=== PATIENT | female | born 1975 | race Native Hawaiian/Other Pacific Islander ===

== ENCOUNTER 2022-01-04 15:26 | Outpatient (CLI) | payer BC | END 2022-01-04 19:23 | disposition home or self-care (01) | LOC: MAMMO 15:26 | PROVIDERS: ATTEND Obstetrics & Gynecology | DX: Z12.31 Encounter for screening mammogram for malignant neoplasm of breast (principal) ==

== ENCOUNTER 2023-01-30 15:46 | Outpatient (CLI) | payer BC | END 2023-01-30 19:09 | disposition home or self-care (01) | LOC: RAD 15:46 | PROVIDERS: ATTEND Nurse Practitioner Family | DX: E55.9 Vitamin D deficiency, unspecified (principal); M06.4 Inflammatory polyarthropathy; M62.81 Muscle weakness (generalized); M79.642 Pain in left hand; R53.83 Other fatigue ==

== ENCOUNTER 2023-03-07 14:47 | Outpatient (CLI) | payer BC | END 2023-03-07 20:11 | disposition home or self-care (01) | LOC: MAMMO 14:47 | PROVIDERS: ATTEND Obstetrics & Gynecology | DX: Z12.31 Encounter for screening mammogram for malignant neoplasm of breast (principal) ==